=== PATIENT | male | born 1995 | race Caucasian/White ===

== ENCOUNTER 2023-09-10 19:17 | Emergency (ER) | payer SELFPAY ==
[~2023-09-10] VITALS: Ht 175.3 cm; Wt 80.0 kg
[2023-09-10 19:23] VITALS: BP 109/72; O2SAT 96
[2023-09-10] MEDS ORDERED: SILV20CR13 TP (21:26)
[2023-09-10] MEDS ORDERED: NAPR-681 PO (21:26)
[2023-09-10] MEDS: BACITRACIN ZINC OINT UDPKT TOP NR (21:38)
[2023-09-10 21:41] VITALS: PULSE 80; RESP 16; TEMP 98.7
== END 2023-09-10 21:43 | disposition home or self-care (01) ==
LOC: ER 19:17
DX: T25.222A Burn of second degree of left foot, initial encounter (principal); X08.8XXA Exposure to other specified smoke, fire and flames, initial encounter; Y93.89 Activity, other specified; Y92.89 Other specified places as the place of occurrence of the external cause; Y99.8 Other external cause status
CPT/HCPCS: 99282